=== PATIENT | male | born 1955 | race Caucasian/White ===

== ENCOUNTER → 2017-08-08 13:18 | Outpatient (CLI) | payer MEDICARE, SELFPAY ==
--- NOTE | 2017-08-08 13:22 | RAD_ITS ---
STUDY: X-RAY - CERVICAL SPINE REASON FOR EXAM: Male, 62 years old. Pain TECHNIQUE: 4 view(s) of the cervical spine were obtained. COMPARISON: None FINDINGS: Normal anterior atlantoaxial articulation. Normal odontoid process. Normal cervical lordosis. There is multi-level endplate spondylosis. There is multi-level degenerative disc disease with multilevel disc space narrowing. There is multi-level osseous foraminal stenosis. The soft tissue structures are unremarkable. RAD/Cerv Spine 2 or 3 Views IMPRESSION: There are degenerative changes as noted above. Electronically Signed: Devaughn Montgomery MD at 21:03 EST , Service support ,
--- NOTE | 2017-08-08 13:22 | RAD_ITS ---
STUDY: X-RAY - THORACIC SPINE REASON FOR EXAM: Male, 62 years old. Pain TECHNIQUE: 3 view(s) of the thoracic spine were obtained. COMPARISON: None. FINDINGS: Normal kyphosis of the thoracic spine. There is no substantial scoliosis. There is demineralization of the thoracic spine with endplate spondylosis. There is multilevel disc space narrowing of the thoracic spine. The soft tissue structures are unremarkable. RAD/Thoracic Spine 3 Views IMPRESSION: There are degenerative changes as noted above. Electronically Signed: Devaughn Montgomery MD at 21:03 EST , Service support ,
== END ==
PROVIDERS: Family Provider Family Medicine; PCP Family Medicine; Visit Provider Anesthesiology Pain Medicine
DX: M54.2 Cervicalgia (principal)
CPT/HCPCS: 72040; 72072

== ENCOUNTER 2017-10-04 14:00 | Outpatient (RCR) | payer MEDICARE, SELFPAY ==
--- NOTE | 2017-07-04 13:50 | HP.PTEVAL ---
Patient's Visit Information MARINE SAMUELS is a 62 year old M referred to Physical Therapy by Juanita NOVA with a diagnosis of L/S spinal stenosis. Date of Evaluation: 07/04/17 Physical Therapist: Gerald Morrison DPT, OC - Visit Plan Frequency: 2x /Week Duration: 2 Months Plan: 2x/week for 4 weeks for pool ex for LE stretches(IT/quad/HS) LB AROM, core /postural strength. 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 - Subjective Subjective: Asked for Physical therapy from Dr. Case due to pain and wants to get in the pool. It helped last year. Has LBP and into both legs for over a year. Water therapy helped considerably. It helped a lot on strength and balance. LBP gets to 4/10 and needs meds for it. Feels like balance is off upon arising from chair. Also feels weak in legs and back. Sleep is OK with meds. Does not work. Back keeps him from working for long time now. Spends day watching televsion and fixing meals, showers. Lives alone. Hard to mow the lawn in the summer due to back pain. - Pain LBP/legs Pain Intensity (Out of 10): 1 Pain Intensity Range: 1, 4 - Objective Walks slow and flat affect but I. Trasnfers I with UE. steps reciprocally and I. LB AROM ext max limited adn mild pain centrally when pushed. SB and flexion mod limited without pain incrrease. reflexes 1/3 patella and achilles. Sensation wNL to gross light touch in LE. strength is 4-/5 LE, has some mild neuropathic gait pattern with flat feet and lacking weight shift/short steps. L/S compression -, - slump and SLR test. HS adn hip flexors and ITB and quads mod tight. Very worn out each time he walk 120 feet plus electing to sit down due to back pain and tired legs, this is normal for him. - Balance Scores Functional Gait Assessment Score: 22 % Disability: 26.6700 - Goals Goal 1:: I approp HEP to minimize symptoms at home. Goal Time Frame: 6-8 Weeks Goal 2:: Pt feel pain no greater than 2/10 and 50% improved. Goal Time Frame: 6-8 Weeks Goal 3:: Pt walk [facility] feet back to [facility] room without increased pain or need to rest. Goal Time Frame: 6-8 Weeks - Rehabilitation Potential Physical Therapy Diagnosis: Spinal stenosis Rehabilitation Potential: Fair - Anticipated Interventions Patient/Client Instruction: Educate patient on: Condition, Plan of Care For the Purpose of:: To decrease pain, To improve gait and locomotor functions Therapeutic Exercise to Include: Strength training, Balance training, Flexibilty training, Passive ROM, Active ROM For the Purpose of:: To decrease pain, To increase ROM, To improve muscle performance and motor function, To improve ability of physical actions for home/community/work/leisure, To improve gait and locomotor functions Thank you for the opportunity to evaluate your patient. For Medicare and Medicare HMO plans, please review the plan of care and approve it. It will need to be FAXED BACK to us at [phone] for Medicare purposes. Please let me know if there are questions or concerns regarding this plan of care. Physician Signature: Date:
--- NOTE | 2017-09-03 13:24 | HP.PTREVAL_ITS ---
Juanita Case, It has been my pleasure to treat MARINE SAMUELS over the last 9 visits for L/S spinal stenosis. Please see the progress note below for an update on the physical therapy plan of care! Subjective: Legs still hurt walking 150 feet to eval room...i don't usually walk that far [place] hurt a little and stop working. That happens sometimes walking out to the car and he needs to sit down. Fell last week getting feet tangled up. Does nto have cane or walker. Had a cane but left it at doctor's office. Getting better overall, getting exercise. No pain in water or after but does get it in the legs walking out to car. Working on posture at home. Ran out of pain pills but will get more at doctor appointment on Sunday. To Dr Case in September. Thinks he can Objective/Function: Gait is safe for 150 feet but steps atart to get short and heavy toward the end. strength LE 4/5 without myotomal problems. ROM is limited in LB felxion and extension maximally, stretching with flexion in sit, no pain ext. HS and quads and hip flexors and piri max tight. Plan Plan: 2x/week x 4 weeks for... 1. Teach land based machine based core, postural and EL strength and progress to list for [place] [facility],. 2. LB flexion ROM. 3. HS, hip flexor stretches taugth for HEP please. Goals Goal 1:: I approp HEP to minimize symptoms at home. Goal Time Frame: 6-8 Weeks Goal Progress: ? compliance Goal 2:: Pt feel pain no greater than 2/10 and 50% improved. Goal Time Frame: 6-8 Weeks Goal Progress: Progressing Goal 3:: Pt walk 250 feet back to eval room without increased pain or need to rest. Goal Time Frame: 6-8 Weeks Goal Progress: no rest, but LE hurt. Anticipated Interventions Patient/Client Instruction: Educate patient on: Condition, Plan of Care For the Purpose of:: To decrease pain, To improve gait and locomotor functions Therapeutic Exercise to Include: Strength training, Balance training, Flexibilty training, Passive ROM, Active ROM For the Purpose of:: To decrease pain, To increase ROM, To improve muscle performance and motor function, To improve ability of physical actions for home/ community/work/leisure, To improve gait and locomotor functions Please do not hesitate to contact me at [phone] by phone or Fax: if you have questions or concerns regarding this new plan of care! Sincerely, Gerald Morrison, DPT, OC
--- NOTE | 2017-12-17 15:24 | HP.PTDCNRP_ITS ---
HP - Discharge Summary (1) - Patient Information MARINE SAMUELS was seen in my office for initial evaluation on 07/04/17. The following Plan of Care was established for this patient: Initial Frequency: 2x /Week Initial Duration: 2 Months - Anticipated Interventions Patient/Client Instruction: Educate patient on: Condition, Plan of Care For the Purpose of:: To decrease pain, To improve gait and locomotor functions Therapeutic Exercise to Include: Strength training, Balance training, Flexibilty training, Passive ROM, Active ROM For the Purpose of:: To decrease pain, To increase ROM, To improve muscle performance and motor function, To improve ability of physical actions for home/ community/work/leisure, To improve gait and locomotor functions This patient was last seen in our office 10/04/17. Pertinent comments regarding their Physical therapy will appear below: Pt seen 12 visits. He cancelled and no showed for his last two visits including his recheck. at this point, it has been over 2 months and I will discontinue due to nonattendance. At this point I will be discontinuing this patient from physical therapy. I would be happy to see this patient again in the future if found appropriate by the physician. Thank you! Gerald Morrison, DPT, OC
== END 2017-10-04 19:00 | disposition home or self-care (01) ==
LOC: PT 14:00
PROVIDERS: Family Provider Family Medicine; PCP Family Medicine; Visit Provider Orthopaedic Surgery
DX: M48.061 Spinal stenosis, lumbar region without neurogenic claudication (principal)
CPT/HCPCS: 97110; 97113; 97162; 97164

== ENCOUNTER 2018-08-01 14:00 | Outpatient (RCR) | payer MEDICARE, SELFPAY ==
--- NOTE | 2018-07-09 10:15 | HP.PTEVAL ---
Patient's Visit Information MARINE SAMUELS is a 63 year old M referred to Physical Therapy by Sonam Clifford MD with a diagnosis of BACK PAIN AND LEG PAIN. Date of Evaluation: 07/09/18 Physical Therapist: Alcon Cummins PT, Cert MDT, OCS - Visit Plan Frequency: 2x /Week Duration: 4 Weeks Plan: Aquatic PT for lumbar ROM ,DLS,POSTURAL EX'S LE FLEXALITY /STRENGTHENING - Subjective Findings: This 63 y/o male presents to physical therapy with BACK and LEG pain. Patient has lumbar pain and right leg for many year. Patient has been in PT in past .Patient seen by DR Payton had back injection which helped 2 months ago. Patient pain worse with with walking,standing 2 mins ,bending ,lifting and ADLS. Patient symptoms better with sitting and MEDS. Patient c/o parathesia/tingling in foot. Patient pain affects QOL and ADL'S. Patient pain affects sleeping. Coughing/sneezing -. Bowel/bldder -.Patient is very inactive and has poor hygine today. VOCATION: disablity. SOCIAL: single - Pain Bilateral Back Pain Intensity (Out of 10): 5 Pain Intensity Range: 10 Right Lower Extremity Pain Intensity (Out of 10): 5 Pain Intensity Range: 10 - Objective POSTURE: mild foward posture. GAIT: ambulates with slow palmer reciprocal pattern. NEURO: c/o parathesia/tingling,reflexes L3-4,L4-5,L5-S1 1/3. MMT: quads/hams 4-/5 ,hip 4-/5,ankle 4/5. LUMBAR ROM: flexion min WFL,extension mod loss,side glides mod loss. side glides mod loss. FLEXABLITY: hams mod loss. SYMMTRIES: alighn - Special Tests L/S Slump test left side: Negative L/S Slump test right side: Negative L/S Left Straight Leg Raise: Negative L/S Right Straight Leg Raise: Positive Lumbar Standing: Flexion - Mechanical Response: No effect Lumbar Standing: Flexion - Symptoms During Testing: Increases Lumbar Standing: Flexion - Symptoms After Testing: Worse Lumbar Standing: Extension - Mechanical Response: No effect Lumbar Standing: Extension - Symptoms During Testing: Increases Lumbar Standing: Extension - Symptoms After Testing: Worse Lumbar Standing: Right Side Glides - Mechanical Response: No effect Lumbar Standing: Right Side [place] - Symptoms During Testing: Increases Lumbar Standing: Right Side [place] - Symptoms After Testing: Worse Lumbar Standing: Left Side [place] - Mechanical Response: No effect Lumbar Standing: Left Side [place] - Symptoms During Testing: Increases Lumbar Standing: Left Side [place] - Symptoms After Testing: Worse - Goals Goal 1:: Independant with Aquatic PT PROGRAM Goal Time Frame: 4-6 Weeks Goal 2:: Patient to improve gait 80% of the time with less pain Goal Time Frame: 4-6 Weeks Goal 3:: Patient increase strength BLE 4/5 to improve gait. Goal Time Frame: 4-6 Weeks Goal 4:: Patient improve lumbar ROM for function of recovery Goal Time Frame: 4-6 Weeks Goal 5:: Patient to improve back LUCIO score by 5 points to improve QOL Goal Time Frame: 4-6 Weeks - Rehabilitation Potential Physical Therapy Diagnosis: This patient has multiple complexity issues with low back pain with pain,decrease ROM ,strength,gait ,deconditioned thus benifit from skilled PT Rehabilitation Potential: Fair - Anticipated Interventions Patient/Client Instruction: Educate patient on: Condition, Plan of Care For the Purpose of:: To decrease pain, To increase ROM, To improve muscle performance and motor function, To increase tolerance to activity/condition/position, To improve ability of physical actions for home/community/work/leisure, To improve health of tissue, To decrease soft tissue restriction, To increase flexibility/ROM, To reduce risk of recurrence, To improve ability to perform tasks related to life management Therapeutic Exercise to Include: Strength training, Body mechanics, Postural training, Flexibilty training, In an aquatic setting, Dynamic Lumbar Stabilization Comment: BLE For the Purpose of:: To decrease pain, To increase ROM, To improve ability to perform ADL's, To increase tolerance to activity/condition/position, To improve ability of physical actions for home/community/work/leisure, To improve health of tissue, To decrease soft tissue restriction, To increase flexibility/ROM, To improve ability to perform tasks related to life management Thank you for the opportunity to evaluate your patient. For Medicare and Medicare HMO plans, please review the plan of care and approve it. It will need to be FAXED BACK to us at [phone] for Medicare purposes. For Medicare only, by signing this I certify the plan of care. Please let me know if there are questions or concerns regarding this plan of care. Physician Signature: Date:
--- NOTE | 2018-10-03 09:45 | HP.PTDCNRP_ITS ---
HP - Discharge Summary (1) - Patient Information MARINE SAMUELS was seen in my office for initial evaluation on 07/09/18. The following Plan of Care was established for this patient: Initial Frequency: 2x /Week Initial Duration: 4 Weeks - Anticipated Interventions Patient/Client Instruction: Educate patient on: Condition, Plan of Care For the Purpose of:: To decrease pain, To increase ROM, To improve muscle performance and motor function, To increase tolerance to activity/condition/position, To improve ability of physical actions for home/community/work/leisure, To improve health of tissue, To decrease soft tiss ue restriction, To increase flexibility/ROM, To reduce risk of recurrence, To improve ability to perform tasks related to life management Therapeutic Exercise to Include: Strength training, Body mechanics, Postural training, Flexibilty training, In an aquatic setting, Dynamic Lumbar Stabilization For the Purpose of:: To decrease pain, To increase ROM, To improve ability to perform ADL's, To increase tolerance to activity/condition/position, To improve ability of physical actions for home/community/work/leisure, To improve health of tissue, To decrease soft tissue restriction, To increase flexibility/ROM, To improve ability to perform tasks related to life management This patient was last seen in our office 08/01/18. Pertinent comments regarding their Physical therapy will appear below: This patient seen for PT for Aquatic PT for ROM,strength,endurance thus d/c . At this point I will be discontinuing this patient from physical therapy. I would be happy to see this patient again in the future if found appropriate by the physician. Thank you! Alcon Cummins, PT, Cert MDT, OCS
== END 2018-08-01 19:00 | disposition home or self-care (01) ==
LOC: PT 14:00
PROVIDERS: Family Provider Family Medicine; PCP Family Medicine; Referring Provider Anesthesiology Pain Medicine; Visit Provider Anesthesiology Pain Medicine
DX: M54.9 Dorsalgia, unspecified (principal); M79.606 Pain in leg, unspecified
CPT/HCPCS: 97113; 97162

== ENCOUNTER 2021-05-12 08:24 | Day surgery (SDC) | payer MEDICARE, SELFPAY ==
[2021-05-12 09:07] VITALS: BP 144/97; PULSE 69; RESP 16; TEMP 36.6; O2SAT 96; BMI 25.2
[2021-05-12] MEDS: Lactated Ringers 1,000 ML 15 ML IV (09:12)
--- NOTE | 2021-05-12 09:23 | HP.PCM_ITS ---
History and Physical Date of Admission: 05/12/21 Allergies tramadol Allergy (Verified 04/25/21 10:38) Unknown Medications Lactobacillus acidophilus 20 billion cell capsule 10 mg PO DAILY 04/25/21 [History Confirmed 04/25/21] albuterol sulfate 90 mcg/actuation aerosol inhaler 2 puff INHALATION Q6H PRN 04/25/21 [History Confirmed 04/25/21] diclofenac sodium 75 mg tablet,delayed release 75 mg PO BID 04/25/21 [History Confirmed 04/25/21] duloxetine 60 mg capsule,delayed release 60 mg PO DAILY 04/25/21 [History Confirmed 04/25/21] famotidine 20 mg tablet 20 mg PO BID 04/25/21 [History Confirmed 04/25/21] fluocinonide 0.05 % topical cream 1 applic TOPICAL BID 04/25/21 [History Confirmed 04/25/21] fluticasone propionate 50 mcg/actuation nasal spray,suspension 1 spray INTRANASAL DAILY 04/25/21 [History Confirmed 04/25/21] multivitamin 1 tab PO DAILY 04/25/21 [History Confirmed 04/25/21] nystatin 100,000 unit/gram topical cream 1 applic TOPICAL DAILY 04/25/21 [History Confirmed 04/25/21] risperidone 4 mg tablet 4 mg PO DAILY 04/25/21 [History Confirmed 04/25/21] tamsulosin 0.4 mg capsule 0.4 mg PO DAILY 04/25/21 [History Confirmed 04/25/21] triamcinolone acetonide 0.025 % topical cream 1 applic TOPICAL DAILY 04/25/21 [History Confirmed 04/25/21] varenicline 1 mg tablet 1 mg PO BID 04/25/21 [History Confirmed 04/25/21] PFSH Medical History (Updated 04/25/21 @ 18:[address] Mark Friend, DO) Anxiety Chronic schizophrenia COPD (chronic obstructive pulmonary disease) Diarrhea Diverticulitis Erectile dysfunction Exposure to hepatitis C GERD (gastroesophageal reflux disease) Hyperglycemia Hypertension Hypertriglyceridemia Hypokalemia Moniliasis Obesity Osteoarthritis Pulmonary nodule Shingles Sinusitis Vitamin D deficiency Family History (Updated 06/07/17 @ 10:11 by Shira Perez) Father Hypertension Social History (Updated 06/07/17 @ 10:29 by Shira Perez) Smoking Status: Current every day smoker Tobacco: How many years used: 40 HPI HPI Details: MARINE SAMUELS, is a 66 M who presents to the office today for He has difficulty with diarrhea that he controls with Imodium PO QD. Denies blood and mucous. Onset November/December of this year. PCP referred him to us for further evaluation. Colonoscopy last performed many years ago. No history of inflammatory bowel disease. He has not taken any antibiotics within the last 6 months. Has not had any abdominal surgeries. He does have some fecal incontinence and tenesmus. He has good results with taking Imodium once a day but it is not perfect. He would like to know why he having so much diarrhea. ROS ENT ENT: Positive for hearing loss Gastro GI: Positive for abdominal pain and diarrhea Musc Musculoskeletal: Positive for joint pain, back pain and Arthritis Exam Const General: cooperative and comfortable Nutritional Appearance: average body habitus and well nourished HENMT Head: normal to inspection Ears: hearing grossly normal bilaterally Nose: external nose normal Face and sinus: normal facial exam Mouth: oral mucosae normal Throat: posterior oropharynx normal Eyes General: appearance normal, both eyes and all related structures Neck Neck: normal visual inspection Chest Chest palpation & inspection: normal inspection of the chest and normal palpation of entire chest wall Resp Effort & Inspection: normal respiratory effort Auscultation: Bilateral: Clear to Auscultation Cardio Palpation: normal PMI Rate: regular rate Rhythm: regular rhythm GI Inspection: normal to inspection Auscultation: normal bowel sounds Percussion: normal to percussion Palpation: no hepatosplenomegaly Skin General: no rashes or lesions noted Neuro General: patient alert Extrem General: normal to inspection Psych Affect: normal affect Quality Reporting Tobacco Screening ([facility] 138) Smoking Status: Current every day smoker Assessment and Plan Assessment and Plan (1) Diarrhea: Status: Acute Plan - Dr. Mark Friend, DO: Differential diagnosis and diarrhea will be medication induced. I would also be infectious versus inflammatory less likely ischemic. I have re-examined the patient. There are no clinical changes since date of exam.
--- NOTE | 2021-05-12 09:30 | IMM_PTH ---
PATIENT: MARINE SAMUELS LOC: EN U#:[id number] AGE/SX: 66/M ROOM: RE05/12/[address]: Dr. Jas Doll DO : 1955 BED: DIS: 05/12/2021 SPEC #: [id number] RECD: 05/12/21 12:50 STATUS: DANILO RETere #: [id number] BRANDEN: 05/12/21 09:[address]: Jas Doll DEPT: IMMUNOHISTOCHEMISTRY RECD BY: Terrie Sung ENTERED: 05/12/21 12:50 SP TYPE: IMMUNO OTHR DR: Dr. Rufus Jensen MD Tissues: B - Stomach, NOS Procedures: H Pylori (initial) PHYSICIAN & INSTITUTION [place] [id number] SPECIMEN INFORMATION: Tissue Source: B - Gastric antrum, biopsy Clinical Info: Diarrhea Specimen Number: [id number] CPT code: 41663 METHODOLOGY: Deparaffinized sections of prefer/formalin-fixed tissue or PAP/DQ stained slides are incubated with monoclonal/polyclonal antibodies/oligonucleotide probes. Localization is made via biotin free immunoperoxidase method. Appropriate controls are performed and reacted as expected. Results on target cell population are indicated in the following table: RESULTS: ANTIBODY / CLONE RESULT Block B H Pylori (polyclonal) negative These tests were developed and their performance characteristics determined by [facility]. They may not have been cleared or approved by the U.S. Food and Drug Administration. The FDA has determined that such clearance or approval is not necessary. INTERPRETATION: B. Gastric antrum, biopsy: Negative for Helicobacter pylori organisms. AM:diana 05/13/2021
--- NOTE | 2021-05-12 09:30 | EGD_PTH ---
PATIENT: MARINE SAMUELS LOC: EN U#:[id number] AGE/SX: 66/M ROOM: RE05/12/[address]: Dr. Jas Doll DO : 1955 BED: DIS: 05/12/2021 SPEC #: [id number] RECD: 05/12/21 10:57 STATUS: DANILO GENA #: [id number] BRANDEN: 05/12/21 09:[address]: Jas Doll DEPT: SURGICAL PATHOLOGY RECD BY: Elsa Lin ENTERED: 05/12/21 11:46 SP TYPE: EGD BIOPSY OT DR: Dr. Rufus Jensen MD Tissues: A - Duodenum, NOS B - Gastric mucous membrane C - Esophagus, NOS D - Ileum, NOS E - COLON BIOPSY F - Sigmoid colon biopsy Procedures: Special Stain Group II Surgery Specimen Level IV Alcian Blue/PAS (control) HEADER OPERATION: [place] [place] DIAGNOSIS: Diarrhea TISSUE SUBMITTED: A ? Duodenum biopsy, B ? Gastric antrum biopsy for H. pylori and pathology, C ? Distal esophagus biopsy, D ? Terminal ileum biopsy, E ? Random colon biopsy, F ? Sigmoid polyp biopsy MICROSCOPIC DIAGNOSIS A. Duodenum, biopsy: Mild Judi?s gland hyperplasia. B. Gastric antrum, biopsy: Minimal chronic inflammation. See comment. C. Distal esophagus, biopsy: Gastroesophageal junctional mucosa with chronic inflammation. Focal changes of reflux. No evidence of goblet cell metaplasia. See comment. D. Terminal ileum, biopsy: No pathologic change. E. Colon, random biopsy: No pathologic change. F. Sigmoid colon polyp, biopsy: Fragments of tubular adenoma. AM:diana 05/13/2021 COMMENT B. The results of immunohistochemistry for Helicobacter pylori will be reported separately ([id number]). C. Alcian blue/PAS stain with matched control supports the above diagnosis. MICROSCOPIC DESCRIPTION Slides are reviewed. GROSS DESCRIPTION A - Received in fixative is one container labeled with the patient's name and designated duodenum biopsy. The specimen consists of multiple irregular fragments of light sam soft tissue that in aggregate measure 0.6 x 0.3 x 0.1 cm. The specimen is totally submitted in one cassette. B - Received in fixative is one container labeled with the patient's name and designated gastric antrum biopsy. The specimen consists of multiple irregular fragments of light sam soft tissue that in aggregate measure 0.5 x 0.3 x 0.1 cm. The specimen is totally submitted in one cassette. C - Received in fixative is one container labeled with the patient's name and designated distal esophagus biopsy. The specimen consists of multiple irregular fragments of light sam soft tissue that in aggregate measure 1.5 x 0.3 x 0.1 cm. The specimen is totally submitted in one cassette. D - Received in fixative is one container labeled with the patient's name and designated terminal ileum biopsy. The specimen consists of multiple irregular fragments of light sam soft tissue that in aggregate measure 0.6 x 0.2 x 0.1 cm. The specimen is totally submitted in one cassette. E - Received in fixative is one container labeled with the patient's name and designated random colon biopsy. The specimen consists of multiple irregular fragments of light sam soft tissue that in aggregate measure 2 x 1 x 0.1 cm. The specimen is totally submitted in one cassette. F - Received in fixative is one container labeled with the patient's name and designated sigmoid polyp biopsy. The specimen consists of two irregular fragments of light sam soft tissue that in aggregate measure 0.5 x 0.2 x 0.1 cm. The specimen is totally submitted in one cassette. / SJ:rg 05/12/21 TC:5 CPT: 60454 x6, 63627
--- NOTE | 2021-05-12 09:50 | OP.EGD_ITS ---
Patient Name: Peter Ramesh Procedure Date: 05/12/2021 9:29 AM Date of : 1955 Age: 66 Procedure: Upper GI endoscopy Indications: Heartburn, Esophageal reflux Providers: Jas Doll DO Medicines: See the Anesthesia note for documentation of the administered medications Patient Profile: This is a 66 year old male. Refer to note in patient chart for documentation of history and physical. Patient has symptoms of chronic heartburn. Complications: No immediate complications. Procedure: Pre-Anesthesia Assessment: - Prior to the procedure, a History and Physical was performed, and patient medications and allergies were reviewed. The patient is competent. The risks and benefits of the procedure and the sedation options and risks were discussed with the patient. All questions were answered and informed consent was obtained. Patient identification and proposed procedure were verified by the physician in the pre-procedure area. Mental Status Examination: alert and oriented. Airway Examination: normal oropharyngeal airway and neck mobility. Respiratory Examination: clear to auscultation. CV Examination: normal. Prophylactic Antibiotics: The patient does not require prophylactic antibiotics. Prior Anticoagulants: The patient has taken no previous anticoagulant or antiplatelet agents. ASA Grade Assessment: II - A patient with mild systemic disease. After reviewing the risks and benefits, the patient was deemed in satisfactory condition to undergo the procedure. The anesthesia plan was to use moderate sedation / analgesia (conscious sedation). Immediately prior to administration of medications, the patient was re-assessed for adequacy to receive sedatives. The heart rate, respiratory rate, oxygen saturations, blood pressure, adequacy of pulmonary ventilation, and response to care were monitored throughout the procedure. The physical status of the patient was re-assessed after the procedure. After obtaining informed consent, the endoscope was passed under direct vision. Throughout the procedure, the patient's blood pressure, pulse, and oxygen saturations were monitored continuously. The Endoscope was introduced through the mouth, and advanced to the second part of duodenum. The upper GI endoscopy was accomplished without difficulty. The patient tolerated the procedure well. Moderate Sedation: Moderate (conscious) sedation was administered by the endoscopy nurse and supervised by the endoscopist. The patient's oxygen saturation, heart rate, blood pressure and response to care were monitored. Total physician intraservice time was 15 minutes. Scope In: 9:39:03 AM Scope Out: 9:45:16 AM Total Procedure Duration Time 0 hours 6 minutes 13 seconds Findings: LA Grade B (one or more mucosal breaks greater than 5 mm, not extending between the tops of two mucosal folds) esophagitis with no bleeding was found 34 to 35 cm from the incisors. Biopsies were taken with a cold forceps for histology. Verification of patient identification for the specimen was done. Estimated blood loss was minimal. A medium-sized hiatal hernia was present. Localized mild inflammation characterized by congestion (edema), erosions and erythema was found in the gastric antrum. Biopsies were taken with a cold forceps for histology. Verification of patient identification for the specimen was done. A few localized erosions without bleeding were found in the duodenal bulb. Biopsies were taken with a cold forceps for histology. Verification of patient identification for the specimen was done. Estimated blood loss was minimal. Impression: - LA Grade B reflux esophagitis. Rule out Cortes's esophagus. Biopsied. - Medium-sized hiatal hernia. - Gastritis. Biopsied. - Duodenal erosions without bleeding. Biopsied. Recommendation: - Discharge patient to home. - Resume previous diet. - Continue present medications. - Await pathology results. - Repeat upper endoscopy in 1 year for surveillance. - Return to GI office in 2 weeks. Procedure Code(s): --- Professional --- 14818, Esophagogastroduodenoscopy, flexible, transoral; with biopsy, single or multiple G0500, Moderate sedation services provided by the same physician or other qualified health director of career resources performing a gastrointestinal endoscopic service that sedation supports, requiring the presence of an independent trained observer to assist in the monitoring of the patient's level of consciousness and physiological status; initial 15 minutes of intra-service time; patient age 5 years or older (additional time may be reported with 63151, as appropriate) CPT copyright 2017 [employer]. All rights reserved. The codes documented in this report are preliminary and upon manager speech review may be revised to meet current compliance requirements. Jas Doll DO 05/12/2021 9:49:58 AM This report has been signed electronically. Number of Addenda: 1 Note Initiated On: 05/12/2021 9:29 AM Addendum Number: 1 Addendum Date: 02/24/2022 6:27:28 AM MAC was used instead of moderate sedation for this patient. Jas Doll DO 02/24/2022 6:27:33 AM This report has been signed electronically.
--- NOTE | 2021-05-12 09:51 | OP.CCLET_ITS ---
02/24/2022 Mark Hayes [address] [place] [address] Re : Upper GI endoscopy procedure for Peter Ramesh Dear Dr. Hayes This procedure was performed on April. My impressions and recommendations are as follows: Impressions : - LA Grade B reflux esophagitis. Rule out Cortes's esophagus. Biopsied. - Medium-sized hiatal hernia. - Gastritis. Biopsied. - Duodenal erosions without bleeding. Biopsied. Recommendations : - Discharge patient to home. - Resume previous diet. - Continue present medications. - Await pathology results. - Repeat upper endoscopy in 1 year for surveillance. - Return to GI office in 2 weeks. My findings are described in the full procedure note, which is enclosed. If I can be of further assistance, please feel free to contact me at . Sincerely, Jas Doll, 05/12/2021 9:49:58 AM This report has been signed electronically.
--- NOTE | 2021-05-12 10:19 | OP.COLON_ITS ---
Patient Name: Peter Ramesh Procedure Date: 05/12/2021 9:48 AM Date of : 1955 Age: 66 Procedure: Colonoscopy Indications: Chronic diarrhea Providers: Jas Doll DO Medicines: See the Anesthesia note for documentation of the administered medications Patient Profile: This is a 66 year old male. Refer to note in patient chart for documentation of history and physical. Patient has symptoms of chronic heartburn. Last Colonoscopy: several years ago. Complications: No immediate complications. Procedure: Pre-Anesthesia Assessment: - Prior to the procedure, a History and Physical was performed, and patient medications and allergies were reviewed. The patient is competent. The risks and benefits of the procedure and the sedation options and risks were discussed with the patient. All questions were answered and informed consent was obtained. Patient identification and proposed procedure were verified by the physician in the pre-procedure area. Mental Status Examination: alert and oriented. Airway Examination: normal oropharyngeal airway and neck mobility. Respiratory Examination: clear to auscultation. CV Examination: normal. Prophylactic Antibiotics: The patient does not require prophylactic antibiotics. Prior Anticoagulants: The patient has taken no previous anticoagulant or antiplatelet agents. ASA Grade Assessment: II - A patient with mild systemic disease. After reviewing the risks and benefits, the patient was deemed in satisfactory condition to undergo the procedure. The anesthesia plan was to use moderate sedation / analgesia (conscious sedation). Immediately prior to administration of medications, the patient was re-assessed for adequacy to receive sedatives. The heart rate, respiratory rate, oxygen saturations, blood pressure, adequacy of pulmonary ventilation, and response to care were monitored throughout the procedure. The physical status of the patient was re-assessed after the procedure. After I obtained informed consent, the scope was passed under direct vision. Throughout the procedure, the patient's blood pressure, pulse, and oxygen saturations were monitored continuously. The adult colonoscope was introduced through the anus and advanced to the terminal ileum, with identification of the appendiceal orifice and IC valve. The colonoscopy was performed without difficulty. The patient tolerated the procedure well. The quality of the bowel preparation was poor. Moderate Sedation: Moderate (conscious) sedation was administered by the endoscopy nurse and supervised by the endoscopist. The patient's oxygen saturation, heart rate, blood pressure and response to care were monitored. Total physician intraservice time was 15 minutes. Scope In: 9:52:36 AM Scope Withdrawal Time 0 hours 10 minutes 51 seconds Scope Out: 10:09:48 AM Total Procedure Duration Time 0 hours 17 minutes 12 seconds Findings: The perianal and digital rectal examinations were normal. Multiple small and large-mouthed diverticula were found in the recto-sigmoid colon, sigmoid colon and descending colon. There was no evidence of diverticular bleeding. A 5 mm polyp was found in the sigmoid colon. The polyp was sessile. The polyp was removed with a hot snare. Resection and retrieval were complete. Verification of patient identification for the specimen was done by the physician. Estimated blood loss was minimal. There was mild spasm in the sigmoid colon. Advancing the scope required changing the patient's position. A localized area of the distal ileum was congested. Biopsies were taken with a cold forceps for histology. Verification of patient identification for the specimen was done. Estimated blood loss was minimal. An area of moderately congested mucosa was found in the descending colon. Four biopsies were taken every 10 cm with a cold forceps from the ascending colon, right colon, left colon, transverse colon, right transverse colon, left transverse colon, descending colon, sigmoid colon, rectum and rectosigmoid colon for evaluation of microscopic colitis. These biopsy specimens were sent to Pathology. Verification of patient identification for the specimen was done. Estimated blood loss was minimal. Impression: - Preparation of the colon was poor. - Moderate diverticulosis in the recto-sigmoid colon, in the sigmoid colon and in the descending colon. There was no evidence of diverticular bleeding. - One 5 mm polyp in the sigmoid colon, removed with a hot snare. Resected and retrieved. - Mild colonic spasm. - Congested mucosa in the distal ileum. Biopsied. - Congested mucosa in the descending colon. Biopsied. Recommendation: - Discharge patient to home. - Resume previous diet. - Continue present medications. - Await pathology results. - Repeat colonoscopy in 3 years for surveillance based on pathology results. - Return to GI office in 2 weeks. Procedure Code(s): --- Professional --- 85852, Colonoscopy, flexible; with removal of tumor(s), polyp(s), or other lesion(s) by snare technique 52307, 59, Colonoscopy, flexible; with biopsy, single or multiple G0500, Moderate sedation services provided by the same physician or other qualified health palliative care nurse performing a gastrointestinal endoscopic service that sedation supports, requiring the presence of an independent trained observer to assist in the monitoring of the patient's level of consciousness and physiological status; initial 15 minutes of intra-service time; patient age 5 years or older (additional time may be reported with 44573, as appropriate) CPT copyright 2017 [employer]. All rights reserved. The codes documented in this report are preliminary and upon business technology architect review may be revised to meet current compliance requirements. Jas Doll DO 05/12/2021 10:18:57 AM This report has been signed electronically. Number of Addenda: 1 Note Initiated On: 05/12/2021 9:48 AM Addendum Number: 1 Addendum Date: 02/24/2022 6:27:48 AM MAC was used instead of moderate sedation for this patient. Jas Doll DO 02/24/2022 6:27:53 AM This report has been signed electronically.
[2021-05-12 10:20] VITALS: BP 107/74; BP 144/97; PULSE 53; RESP 18; TEMP 36; O2SAT 98
--- NOTE | 2021-05-12 10:20 | OP.CCLET_ITS ---
02/24/2022 Mark Hayes [address] [place] [address] [place] [address] Re : Colonoscopy procedure for Peter Ramesh Dear Dr. Hayes This procedure was performed on April. My impressions and recommendations are as follows: Impressions : - Preparation of the colon was poor. - Moderate diverticulosis in the recto-sigmoid colon, in the sigmoid colon and in the descending colon. There was no evidence of diverticular bleeding. - One 5 mm polyp in the sigmoid colon, removed with a hot snare. Resected and retrieved. - Mild colonic spasm. - Congested mucosa in the distal ileum. Biopsied. - Congested mucosa in the descending colon. Biopsied. Recommendations : - Discharge patient to home. - Resume previous diet. - Continue present medications. - Await pathology results. - Repeat colonoscopy in 3 years for surveillance based on pathology results. - Return to GI office in 2 weeks. My findings are described in the full procedure note, which is enclosed. If I can be of further assistance, please feel free to contact me at . Sincerely, Jas Doll, 05/12/2021 10:18:57 AM This report has been signed electronically.
[2021-05-12 10:23] VITALS: BP 125/78; BP 144/97; PULSE 54; RESP 12; O2SAT 98
[2021-05-12 10:25] VITALS: BP 127/78; BP 144/97; PULSE 58; RESP 18; O2SAT 98
[2021-05-12 10:28] VITALS: BP 139/81; BP 144/97; RESP 16; TEMP 36.8; O2SAT 100
[2021-05-12 10:47] VITALS: BP 144/97
== END 2021-05-12 11:13 | disposition home or self-care (01) ==
LOC: EN 08:27 → AC 08:28
PROVIDERS: PCP Family Medicine; Referring Provider Family Medicine; Visit Provider Internal Medicine Gastroenterology
PROC: 0DJD8ZZ Inspection of Lower Intestinal Tract, Via Natural or Artificial Opening Endoscopic (ICD-10-PCS; CPT 45378; principal; 2021-05-12 09:25)
DX: K29.70 Gastritis, unspecified, without bleeding (principal); K21.00 Gastro-esophageal reflux disease with esophagitis, without bleeding; K44.9 Diaphragmatic hernia without obstruction or gangrene; K26.9 Duodenal ulcer, unspecified as acute or chronic, without hemorrhage or perforation; K57.30 Diverticulosis of large intestine without perforation or abscess without bleeding; D12.5 Benign neoplasm of sigmoid colon; I10 Essential (primary) hypertension; F41.9 Anxiety disorder, unspecified; F20.9 Schizophrenia, unspecified; E78.1 Pure hyperglyceridemia; J44.9 Chronic obstructive pulmonary disease, unspecified; M19.90 Unspecified osteoarthritis, unspecified site; Z87.19 Personal history of other diseases of the digestive system; Z79.899 Other long term (current) drug therapy; F17.200 Nicotine dependence, unspecified, uncomplicated
CPT/HCPCS: 43239; 45380; 45385; 88305; 88313; 88342; J7120; J2405